=== PATIENT | female | born 1995 | race Caucasian/White ===

== ENCOUNTER → 2018-12-31 | Outpatient (CLI) | payer OTHER | LOC: COL.RAD 07:42 | DX: K51.90 Ulcerative colitis, unspecified, without complications (principal); K62.5 Hemorrhage of anus and rectum; D64.9 Anemia, unspecified; M25.50 Pain in unspecified joint; Z87.19 Personal history of other diseases of the digestive system ==

== ENCOUNTER → 2019-04-01 | Outpatient (CLI) | payer OTHER | LOC: ZCOL.LAB 16:13 | DX: N89.8 Other specified noninflammatory disorders of vagina (principal) ==

== ENCOUNTER → 2019-04-16 | Outpatient (CLI) | payer OTHER | LOC: ZCOL.LAB 16:40 | DX: N98.9 Complication associated with artificial fertilization, unspecified (principal) ==